=== PATIENT | male | born 1990 | race Hispanic/Latino ===

== ENCOUNTER 2018-04-24 14:33 | Emergency (ER) | payer SELFPAY ==
[~2018-04-24] VITALS: Ht 188 cm; Wt 86.2 kg
--- NOTE | 2018-04-24 16:43 | Diagnostic Imaging Report ---
PROCEDURE:X-RAY RIGHT FINGER COMPARISON:None. INDICATIONS:RIGHT FOURTH DIGIT TRAUMA FINDINGS: See conclusion. CONCLUSION: Mildly displaced oblique fracture of the base of the proximal phalanx of the right fourth digit with associated mild soft tissue swelling. Dictated by: Angelito Piedra M.D. on 04/24/2018 at 16:49 Electronically approved by: Angelito Piedra M.D. on 04/24/2018 at 16:49
[2018-04-24] MEDS ORDERED: TRAMADOL HCL 50 MG TAB PO ONE (17:30)
[2018-04-24 17:59] VITALS: BP 132/82
== END 2018-04-24 18:30 | disposition home or self-care (01) ==
LOC: ER 14:33
DX: S62.614A Displaced fracture of proximal phalanx of right ring finger, initial encounter for closed fracture (principal); W22.09XA Striking against other stationary object, initial encounter; Y92.008 Other place in unspecified non-institutional (private) residence as the place of occurrence of the external cause
CPT/HCPCS: 99284